=== PATIENT | female | born 1960 | race Caucasian/White ===

== ENCOUNTER 2017-07-03 11:55 | Observation (INO) | payer OTHER ==
[2017-07-03] VITALS (11 sets, daily range): BP systolic 104–182; BP diastolic 57–96; PULSE 74–103; RESP 16–21; TEMP 97.3–98.7; O2SAT 97–100
[~2017-07-03] VITALS: Ht 172.7 cm; Wt 81.5 kg
[~2017-07-03 11:55] MED LIST: FLUT1SPR5 EACH NARE; TRAM50TA PO; VENTAER INH
[2017-07-03] MEDS ORDERED: IOHEXOL 350 MG/ML 10 ML VIAL (for RAD DIAG) IVCONTRAST ONE (11:56)
[2017-07-03] MEDS ORDERED: ATOR40TA16 PO (12:15)
[2017-07-03] MEDS ORDERED: MECL-62 PO (12:15)
[2017-07-03] MEDS ORDERED: AMLO5TAB2 PO (12:15)
[2017-07-03] MEDS ORDERED: DULO1CAP2 PO (12:15)
[2017-07-03] MEDS ORDERED: SODIUM CHLOR 0.9% 1000 ML INJ 1,000 ML IV ONE (12:30)
[2017-07-03] MEDS ORDERED: SODIUM CHLORIDE 0.9% FLUSH 10 ML FLUSH IVF PRN (12:30)
--- NOTE | 2017-07-03 12:34 | PD ---
HPI Chief Complaint: Respiratory Symptoms Time Seen by Provider: 12:13 Travel History International Travel<30 days: No Contact w/Intl Traveler<30days: No Traveled to known affect area: No History of Present Illness HPI 56-year-old female presents emergency department complaining of shortness of breath and "chest heaviness". States that she has had these symptoms for approximately 5 weeks. States that she was treated for the flu by her primary care physician with Tamiflu and subsequently followed up with an urgent care for chest x-ray diagnosis of bronchitis and sinusitis. Patient states that she was placed on steroid antibiotic and her last dose was approximately 3 days ago. Patient states that she started feeling better but continues to have shortness of breath. States she does have a productive cough. States that this chest heaviness increases with lying down decreases with sitting up. States she has had 2 sleep sitting up because of the chest heaviness for approximately 5 weeks. Patient denies fever, chills, chest pain, abdominal pain , leg swelling, leg pain. Patient denies recent history of travel, surgery, fracture, blood clots, cancer. States she does have a history of fibromyalgia, hypertension, hyperlipidemia. Denies history of cardiac, pulmonary, kidney disease processes. Patient states she does have a family history of heart attacks. PFSH Past Medical History High Cholesterol: Yes Diminished Hearing: No Fibromyalgia: Yes Hypertension: Yes Medical other: Yes (VERTIGO) Immunizations Current: No Tetanus Vaccination: < 5 Years Influenza Vaccination: Yes Menopausal: Yes : 2 Para: 2 Family History Family Hypercholesterolemia: Yes Social History Alcohol Use: No Tobacco Use: No (QUIT 1991) Substance Use: No Allergies-Medications (Allergen,Severity, Reaction): Coded Allergies: strawberry (Unverified Allergy, Unknown, 07/03/17) Reported Meds & Prescriptions Reported Meds & Active Scripts Active Reported Amlodipine (Amlodipine Besylate) 5 Mg Tab 5 Mg PO DAILY Duloxetine DR (Duloxetine HCl) 30 Mg Capdr 30 Mg PO TID Atorvastatin (Atorvastatin Calcium) 40 Mg Tab 40 Mg PO HS Meclizine (Meclizine HCl) 25 Mg Tab 25 Mg PO DIRECTED PRN Flonase Nasal [place] (Fluticasone Nasal [place]) 50 Mcg/Act [place] 50 Mcg EACH NARE BID Ventolin Hfa 18 GM Inh (Albuterol Sulfate) 90 Mcg/Act Aer 2 Puff INH Q4-6H PRN Tramadol (Tramadol HCl) 50 Mg Tab 50 Mg PO Q12HR PRN Review of Systems Except as stated in HPI: all other systems reviewed are Neg Physical Exam Narrative GENERAL: WD, WN in mild distress SKIN: Focused skin assessment warm/dry. HEAD: Atraumatic. Normocephalic. EYES: Pupils equal and round. No scleral icterus. No injection or drainage. ENT: No nasal bleeding or discharge. Mucous membranes pink and moist. NECK: Trachea midline. No JVD. No lymphadenopathy CARDIOVASCULAR: Regular rate and rhythm. No murmur appreciated. RESPIRATORY: No accessory muscle use. Clear to auscultation. Breath sounds equal bilaterally. No wheezes, rales, rhonchi GASTROINTESTINAL: Abdomen soft, non-tender, nondistended. Hepatic and splenic margins not palpable. MUSCULOSKELETAL: No obvious deformities. No clubbing. No cyanosis. No edema. Homans sign negative bilaterally NEUROLOGICAL: Awake and alert. No obvious cranial nerve deficits. Motor grossly within normal limits. Normal speech. PSYCHIATRIC: Appropriate mood and affect; insight and judgment normal. Data Data Last Documented VS Vital Signs Date Time Temp Pulse Resp B/P (MAP) Pulse Ox O2 Delivery O2 Flow Rate FiO2 07/03/17 14:45 100 Nasal Cannula 2.00 07/03/17 14:02 80 20 134/61 (85) 07/03/17 11:58 97.9 Orders Orders Complete Blood Count With Diff (07/03/17 12:23) Comprehensive Metabolic Panel (07/03/17 12:23) B-Type Natriuretic Peptide (07/03/17 12:23) D-Dimer (07/03/17 12:23) Act Partial Throm Time (Ptt) (07/03/17 12:23) Prothrombin Time / Inr (Pt) (07/03/17 12:23) Magnesium (Mg) (07/03/17 12:23) Troponin I (07/03/17 12:23) Urinalysis - C+S If Indicated (07/03/17 12:23) Electrocardiogram (07/03/17 12:23) Ecg Monitoring (07/03/17 12:23) Oximetry (07/03/17 12:23) Chest, Single Ap (07/03/17 12:23) Sodium Chloride 0.9% Flush (Ns Flush) (07/03/17 12:30) Albuterol-Ipratropium Neb (Duoneb Neb) (07/03/17 12:30) Sodium Chlor 0.9% 1000 Ml Inj (Ns 1000 M (07/03/17 12:30) Clonidine (Catapres) (07/03/17 14:00) Ct Pulmonary Angiogram (07/03/17 ) Oxygen Administration (07/03/17 14:22) Iohexol 350 Inj (Omnipaque 350 Inj) (07/03/17 11:56) Activity Bed Rest With Brp (07/03/17 15:38) Vital Signs (Adult) Q4H (07/03/17 15:38) Cardiac Rhythm .As Directed (07/03/17 15:38) Notify Dr: Other .PRN (07/03/17 15:38) Notify DrRamos Parameters (07/03/17 15:38) Resp Oxygen Nasal Cannula (07/03/17 ) Diet Heart Healthy (07/03/17 Dinner) Ckmb (Isoenzyme) Profile (07/03/17 15:38) Ckmb (Isoenzyme) Profile (07/03/17 18:38) Troponin I (07/03/17 15:38) Troponin I (07/03/17 18:38) Electrocardiogram (07/03/17 15:38) Electrocardiogram (07/03/17 18:38) ^ Obtain (07/03/17 15:38) Acetaminophen (Tylenol) (07/03/17 15:45) Aspirin Chew (Aspirin Chew) (07/03/17 15:45) Web Application Developer / Telemetry [email or web address] (07/03/17 15:38) Admit Order (Ed Use Only) (07/03/17 15:38) Labs Laboratory Tests Test 07/03/17 12:30 07/03/17 13:20 White Blood Count 6.1 TH/MM3 Red Blood Count 5.03 MIL/MM3 Hemoglobin 14.7 GM/DL Hematocrit 43.0 % Mean Corpuscular Volume 85.5 FL Mean Corpuscular Hemoglobin 29.3 PG Mean Corpuscular Hemoglobin Concent 34.2 % Red Cell Distribution Width 14.1 % Platelet Count 290 TH/MM3 Mean Platelet Volume 9.1 FL Neutrophils (%) (Auto) 48.4 % Lymphocytes (%) (Auto) 41.0 % Monocytes (%) (Auto) 6.3 % Eosinophils (%) (Auto) 3.3 % Basophils (%) (Auto) 1.0 % Neutrophils # (Auto) 3.0 TH/MM3 Lymphocytes # (Auto) 2.5 TH/MM3 Monocytes # (Auto) 0.4 TH/MM3 Eosinophils # (Auto) 0.2 TH/MM3 Basophils # (Auto) 0.1 TH/MM3 CBC Comment DIFF FINAL Differential Comment Prothrombin Time 9.8 SEC Prothromb Time International Ratio 1.0 RATIO Activated Partial Thromboplast Time 25.4 SEC D-Dimer Quantitative (PE/DVT) 0.42 MG/L FEU Blood Urea Nitrogen 13 MG/DL Creatinine 0.94 MG/DL Random Glucose 118 MG/DL Total Protein 7.4 GM/DL Albumin 3.6 GM/DL Calcium Level 9.1 MG/DL Magnesium Level 2.4 MG/DL Alkaline Phosphatase 94 U/L Aspartate Amino Transf (AST/SGOT) 37 U/L Alanine Aminotransferase (ALT/SGPT) 33 U/L Total Bilirubin 0.4 MG/DL Sodium Level 139 MEQ/L Potassium Level 4.3 MEQ/L Chloride Level 107 MEQ/L Carbon Dioxide Level 24.0 MEQ/L Anion Gap 8 MEQ/L Estimat Glomerular Filtration Rate 61 ML/MIN Troponin I LESS THAN 0.02 NG/ML B-Type Natriuretic Peptide 2 PG/ML Urine Color YELLOW Urine Turbidity HAZY Urine pH 5.5 Urine Specific [place] 1.022 Urine Protein TRACE mg/dL Urine Glucose (UA) NEG mg/dL Urine Ketones NEG mg/dL Urine Occult Blood NEG Urine Nitrite NEG Urine Bilirubin NEG Urine Urobilinogen 2.0 MG/DL Urine Leukocyte Esterase SMALL Urine RBC 1 /hpf Urine WBC 3 /hpf Urine Squamous Epithelial Cells 5 /hpf Urine Renal Epithelial Cells <1 /hpf Urine Mucus FEW /lpf Microscopic Urinalysis Comment CULT NOT INDICATED MDM Medical Decision Making Medical Screen Exam Complete: Yes Emergency Medical Condition: Yes Differential Diagnosis Pneumonia, bronchitis, URI, NSTEMI Narrative Course 56-year-old female presents emergency department complaining of shortness of breath and "chest heaviness". States that she has had these symptoms for approximately 5 weeks. States that she was treated for the flu by her primary care physician with Tamiflu and subsequently followed up with an urgent care for chest x-ray diagnosis of bronchitis and sinusitis. Patient states that she was placed on steroid antibiotic and her last dose was approximately 3 days ago. Patient states that she started feeling better but continues to have shortness of breath. States she does have a productive cough. States that this chest heaviness increases with lying down decreases with sitting up. States she has had 2 sleep sitting up because of the chest heaviness for approximately 5 weeks. Patient denies fever, chills, chest pain, abdominal pain , leg swelling, leg pain. Patient denies recent history of travel, surgery, fracture, blood clots, cancer. States she does have a history of fibromyalgia, hypertension, hyperlipidemia. Denies history of cardiac, pulmonary, kidney disease processes. Patient states she does have a family history of heart attacks. Pt stopped smoking in 1991. Vital signs demonstrate elevated BP. Clonidine 0.1mg administered with good response. Duonebs administered without significant relief. Review the EMR shows stress test in March 2016 last stress test in March 2016 which included a normal treadmill exercise and no evidence of ischemia. There is mention of poor exercise tolerance. Laboratory Tests Test 07/03/17 12:30 07/03/17 13:20 White Blood Count 6.1 TH/MM3 Red Blood Count 5.03 MIL/MM3 Hemoglobin 14.7 GM/DL Hematocrit 43.0 % Mean Corpuscular Volume 85.5 FL Mean Corpuscular Hemoglobin 29.3 PG Mean Corpuscular Hemoglobin Concent 34.2 % Red Cell Distribution Width 14.1 % Platelet Count 290 TH/MM3 Mean Platelet Volume 9.1 FL Neutrophils (%) (Auto) 48.4 % Lymphocytes (%) (Auto) 41.0 % Monocytes (%) (Auto) 6.3 % Eosinophils (%) (Auto) 3.3 % Basophils (%) (Auto) 1.0 % Neutrophils # (Auto) 3.0 TH/MM3 Lymphocytes # (Auto) 2.5 TH/MM3 Monocytes # (Auto) 0.4 TH/MM3 Eosinophils # (Auto) 0.2 TH/MM3 Basophils # (Auto) 0.1 TH/MM3 CBC Comment DIFF FINAL Differential Comment Prothrombin Time 9.8 SEC Prothromb Time International Ratio 1.0 RATIO Activated Partial Thromboplast Time 25.4 SEC D-Dimer Quantitative (PE/DVT) 0.42 MG/L FEU Blood Urea Nitrogen 13 MG/DL Creatinine 0.94 MG/DL Random Glucose 118 MG/DL Total Protein 7.4 GM/DL Albumin 3.6 GM/DL Calcium Level 9.1 MG/DL Magnesium Level 2.4 MG/DL Alkaline Phosphatase 94 U/L Aspartate Amino Transf (AST/SGOT) 37 U/L Alanine Aminotransferase (ALT/SGPT) 33 U/L Total Bilirubin 0.4 MG/DL Sodium Level 139 MEQ/L Potassium Level 4.3 MEQ/L Chloride Level 107 MEQ/L Carbon Dioxide Level 24.0 MEQ/L Anion Gap 8 MEQ/L Estimat Glomerular Filtration Rate 61 ML/MIN Troponin I LESS THAN 0.02 NG/ML B-Type Natriuretic Peptide 2 PG/ML Urine Color YELLOW Urine Turbidity HAZY Urine pH 5.5 Urine Specific [place] 1.022 Urine Protein TRACE mg/dL Urine Glucose (UA) NEG mg/dL Urine Ketones NEG mg/dL Urine Occult Blood NEG Urine Nitrite NEG Urine Bilirubin NEG Urine Urobilinogen 2.0 MG/DL Urine Leukocyte Esterase SMALL Urine RBC 1 /hpf Urine WBC 3 /hpf Urine Squamous Epithelial Cells 5 /hpf Urine Renal Epithelial Cells <1 /hpf Urine Mucus FEW /lpf Microscopic Urinalysis Comment CULT NOT INDICATED I spoke with my attending, Dr. Goncalves who recommended a CT pulmonary angiogram as she continues to be SOB. Last Impressions Chest X-Ray 07/03/17 1223 Signed Impressions: Service Date/Time: Monday, July 03, 2017 13:05 - CONCLUSION: The lungs are clear. Brandt Powell MD CT Angiography 07/03/17 0000 Signed Impressions: Service Date/Time: Monday, July 03, 2017 15:11 - CONCLUSION: Normal examination. Darryl Milton MD Based on the patient's history and physical, patient was placed in the chest pain center. There is a concern for an ACS event. ASA, O2 administered. Patient states she does feel better after the application of oxygen. She continues to describe her chest "pain" as heaviness and worse with exertion. Pt and agreed to the admission/observation period. Diagnosis Primary Impression: Shortness of breath Additional Impression: Atypical chest pain Admitting Information Admitting Physician Requests: Observation Condition: Stable Coretta Cabrera Jul 03, 2017 12:34
[2017-07-03] MEDS: RESP: ALBUTEROL 2.5 MG/IPRATROPIUM 0.5 MG NEB (SCH) INH (12:40)
[2017-07-03 12:54] LABS: BASOPHIL # 0.1 TH/MM3 (0-0.2); EOSINOPHIL # 0.2 TH/MM3 (0-0.4); EOSINOPHIL % 3.3 % (0.0-4.0); HEMOGLOBIN 14.7 GM/DL (11.6-15.3); LYMPHOCYTE # 2.5 TH/MM3 (1.0-4.8); MEAN CELL VOLUME 85.5 FL (80.0-100.0); MEAN CORPUSCULAR HEMOGLOBIN 29.3 PG (27.0-34.0); MEAN CORPUSCULAR HGB CONC 34.2 % (32.0-36.0); MEAN PLATELET VOLUME 9.1 FL (7.0-11.0); MONO % 6.3 % (0.0-8.0); MONOCYTE # 0.4 TH/MM3 (0-0.9); NEUT % 48.4 % (16.0-70.0); PLATELET COUNT 290 TH/MM3 (150-450); RED BLOOD COUNT 5.03 MIL/MM3 (4.00-5.30); RED CELL DISTRIBUTION WIDTH 14.1 % (11.6-17.2); WHITE BLOOD COUNT 6.1 TH/MM3 (4.0-11.0)
[2017-07-03 13:00] LABS: PROTHROMBIN TIME - PATIENT 9.8 SEC (9.8-11.6)
[2017-07-03 13:01] LABS: D-DIMER 0.42 MG/L FEU (0.00-0.50)
[2017-07-03 13:17] LABS: ALT (GPT) 33 U/L (10-53)
[2017-07-03 13:21] LABS: ALKALINE PHOSPHATASE 94 U/L (45-117); TOTAL BILIRUBIN ADULT 0.4 MG/DL (0.2-1.0); TOTAL PROTEIN 7.4 GM/DL (6.4-8.2); TROPONIN I LESS THAN 0.02 NG/ML (0.02-0.05)
--- NOTE | 2017-07-03 13:21 | RADRPT ---
EXAM DATE/TIME: 07/03/2017 13:05 [facility] COMPARISON: CHEST SINGLE AP, March 27, 2016, 13:39. INDICATIONS : Short of Breath MEDICAL HISTORY : None. SURGICAL HISTORY : Fusion, lumbar. ENCOUNTER: Initial ACUITY: 1 day PAIN SCORE: 0/10 LOCATION: chest FINDINGS: A single view of the chest demonstrates the lungs to be symmetrically aerated without evidence of mas s, infiltrate or effusion. The cardiomediastinal contours are unremarkable. Osseous structures are intact. CONCLUSION: The lungs are clear. Brandt Powell MD on July 03, 2017 at 13:19 Board Certified Radiologist. This report was verified electronically.
[2017-07-03 13:40] LABS: ALBUMIN 3.6 GM/DL (3.4-5.0); AST (GOT) 37 U/L (15-37); BLOOD UREA NITROGEN 13 MG/DL (7-18); CALCIUM 9.1 MG/DL (8.5-10.1); CHLORIDE 107 MEQ/L (98-107); CREATININE 0.94 MG/DL (0.50-1.00); GLOMERULAR FILTRATION RATE 61 ML/MIN (>89); GLUCOSE,RANDOM 118 MG/DL (74-106); MAGNESIUM 2.4 MG/DL (1.5-2.5); SODIUM (NA) 139 MEQ/L (136-145)
[2017-07-03 14:00] LABS: BILIRUBIN, URINE NEG (NEG); BLOOD, URINE NEG (NEG); GLUCOSE,URINE NEG (NEG); KETONE, URINE NEG (NEG); MUCUS URINE FEW /lpf (OCC); NITRITE,URINE NEG (NEG); PH, URINE 5.5 (5.0-8.5); RENAL EPITHELIAL CELLS <1 /hpf; SQUAMOUS EPITHELIAL CELL URINE 5 /hpf (0-5); URINE COLOR YELLOW (YELLW/STRAW); URINE LEUKOCYTE ESTERASE SMALL (NEG)
[2017-07-03] MEDS ORDERED: cloNIDine HCL 0.1 MG TAB PO ONE (14:00)
--- NOTE | 2017-07-03 15:31 | RADRPT ---
EXAM DATE/TIME: 07/03/2017 15:11 [facility] COMPARISON: CHEST SINGLE AP, July 03, 2017, 13:05. INDICATIONS : Shortness of breath, heaviness in chest. IV CONTRAST: 80 cc Omnipaque 350 (iohexol) IV RADIATION DOSE: 10.85 CTDIvol (mGy) MEDICAL HISTORY : Hypertension. Fibromyalgia. SURGICAL HISTORY : None. ENCOUNTER: Initial ACUITY: 1 month PAIN SCALE: 0/10 LOCATION: Bilateral chest TECHNIQUE: Volumetric scanning of the chest was performed using a pulmonary embolism protocol MIP images were re constructed. Using automated exposure control and adjustment of the mA and/or kV according to patien t size, radiation dose was kept as low as reasonably achievable to obtain optimal diagnostic quality images. DICOM format image data is available electronically for review and comparison. Follow-up recommendations for detected pulmonary nodules are based at a minimum on nodule size and pa tient risk factors according to Fleischner Society Guidelines. FINDINGS: PULMONARY ARTERIES: No filling defects are seen in the pulmonary arteries through the segmental level. LUNGS: There is no consolidation or pneumothorax . No concerning pulmonary nodule is visualized. PLEURAE: There is no pleural thickening or pleural effusion. MEDIASTINUM: There is good visualization of the great vessels of the middle mediastinum. No evidence of mediastin al or hilar adenopathy/mass. MUSCULOSKELETAL: Within normal limits for patient age. MISCELLANEOUS: The visualized upper abdominal organs demonstrate no acute abnormality. CONCLUSION: Normal examination. Darryl Milton MD on July 03, 2017 at 15:29 Board Certified Radiologist. This report was verified electronically.
[2017-07-03] MEDS ORDERED: ACETAMINOPHEN 500 MG CPLT PO PRN (15:45)
[2017-07-03] MEDS ORDERED: ASPIRIN 81 MG CHEW TAB PO ONE (15:45)
--- NOTE | 2017-07-03 16:26 | PD ---
Data Data Last Documented VS Vital Signs Date Time Temp Pulse Resp B/P (MAP) Pulse Ox O2 Delivery O2 Flow Rate FiO2 07/03/17 14:45 100 Nasal Cannula 2.00 07/03/17 14:02 80 20 134/61 (85) 07/03/17 11:58 97.9 Orders Orders Complete Blood Count With Diff (07/03/17 12:23) Comprehensive Metabolic Panel (07/03/17 12:23) B-Type Natriuretic Peptide (07/03/17 12:23) D-Dimer (07/03/17 12:23) Act Partial Throm Time (Ptt) (07/03/17 12:23) Prothrombin Time / Inr (Pt) (07/03/17 12:23) Magnesium (Mg) (07/03/17 12:23) Troponin I (07/03/17 12:) Urinalysis - C+S If Indicated (07/03/17 12:23) Electrocardiogram (07/03/17 12:23) Ecg Monitoring (07/03/17 12:23) Oximetry (07/03/17 12:23) Chest, Single Ap (07/03/17 12:23) Sodium Chloride 0.9% Flush (Ns Flush) (07/03/17 12:30) Albuterol-Ipratropium Neb (Duoneb Neb) (07/03/17 12:30) Sodium Chlor 0.9% 1000 Ml Inj (Ns 1000 M (07/03/17 12:30) Clonidine (Catapres) (07/03/17 14:00) Ct Pulmonary Angiogram (07/03/17 ) Oxygen Administration (07/03/17 14:22) Iohexol 350 Inj (Omnipaque 350 Inj) (07/03/17 11:56) Activity Bed Rest With Brp (07/03/17 15:38) Vital Signs (Adult) Q4H (07/03/17 15:38) Cardiac Rhythm .As Directed (07/03/17 15:38) Notify Dr: Other .PRN (07/03/17 15:38) Notify Parameters (07/03/17 15:38) Resp Oxygen Nasal Cannula (07/03/17 ) Diet Heart Healthy (07/03/17 Dinner) Ckmb (Isoenzyme) Profile (07/03/17 15:38) Ckmb (Isoenzyme) Profile (07/03/17 18:38) Troponin I (07/03/17 15:38) Troponin I (07/03/17 18:38) Electrocardiogram (07/03/17 15:38) Electrocardiogram (07/03/17 18:38) ^ Obtain (07/03/17 15:38) Acetaminophen (Tylenol) (07/03/17 15:45) Aspirin Chew (Aspirin Chew) (07/03/17 15:45) Global Position System Technician / Telemetry [email or web address] (07/03/17 15:38) Admit Order (Ed Use Only) (07/03/17 15:38) Labs Laboratory Tests Test 07/03/17 12:30 07/03/17 13:20 White Blood Count 6.1 TH/MM3 Red Blood Count 5.03 MIL/MM3 Hemoglobin 14.7 GM/DL Hematocrit 43.0 % Mean Corpuscular Volume 85.5 FL Mean Corpuscular Hemoglobin 29.3 PG Mean Corpuscular Hemoglobin Concent 34.2 % Red Cell Distribution Width 14.1 % Platelet Count 290 TH/MM3 Mean Platelet Volume 9.1 FL Neutrophils (%) (Auto) 48.4 % Lymphocytes (%) (Auto) 41.0 % Monocytes (%) (Auto) 6.3 % Eosinophils (%) (Auto) 3.3 % Basophils (%) (Auto) 1.0 % Neutrophils # (Auto) 3.0 TH/MM3 Lymphocytes # (Auto) 2.5 TH/MM3 Monocytes # (Auto) 0.4 TH/MM3 Eosinophils # (Auto) 0.2 TH/MM3 Basophils # (Auto) 0.1 TH/MM3 CBC Comment DIFF FINAL Differential Comment Prothrombin Time 9.8 SEC Prothromb Time International Ratio 1.0 RATIO Activated Partial Thromboplast Time 25.4 SEC D-Dimer Quantitative (PE/DVT) 0.42 MG/L FEU Blood Urea Nitrogen 13 MG/DL Creatinine 0.94 MG/DL Random Glucose 118 MG/DL Total Protein 7.4 GM/DL Albumin 3.6 GM/DL Calcium Level 9.1 MG/DL Magnesium Level 2.4 MG/DL Alkaline Phosphatase 94 U/L Aspartate Amino Transf (AST/SGOT) 37 U/L Alanine Aminotransferase (ALT/SGPT) 33 U/L Total Bilirubin 0.4 MG/DL Sodium Level 139 MEQ/L Potassium Level 4.3 MEQ/L Chloride Level 107 MEQ/L Carbon Dioxide Level 24.0 MEQ/L Anion Gap 8 MEQ/L Estimat Glomerular Filtration Rate 61 ML/MIN Troponin I LESS THAN 0.02 NG/ML B-Type Natriuretic Peptide 2 PG/ML Urine Color YELLOW Urine Turbidity HAZY Urine pH 5.5 Urine Specific [place] 1.022 Urine Protein TRACE mg/dL Urine Glucose (UA) NEG mg/dL Urine Ketones NEG mg/dL Urine Occult Blood NEG Urine Nitrite NEG Urine Bilirubin NEG Urine Urobilinogen 2.0 MG/DL Urine Leukocyte Esterase SMALL Urine RBC 1 /hpf Urine WBC 3 /hpf Urine Squamous Epithelial Cells 5 /hpf Urine Renal Epithelial Cells <1 /hpf Urine Mucus FEW /lpf Microscopic Urinalysis Comment CULT NOT INDICATED MDM Medical Record Reviewed: Yes Supervised Visit with LONNIE: Yes Narrative Course I, Dr. Goncalves, have reviewed the advance practice practitioner's documentation and am in agreement, met with the patient face to face, made the diagnosis, and the medical decision making was done by me. *My assessment and Findings: EKG shows sinus rhythm without ischemic injury pattern The patient will follow up with the chest pain center protocol given her chest heaviness and dyspnea on exertion failure to complete a stress test one year prior. Diagnosis Primary Impression: Shortness of breath Additional Impression: Atypical chest pain Condition: Stable Curtis Goncalves MD Jul 03, 2017 16:25
[2017-07-03] MEDS ORDERED: RESP: ALBUTEROL 2.5 MG/IPRATROPIUM 0.5 MG NEB (PRN) INH (16:30)
[2017-07-03] MEDS ORDERED: cloNIDine HCL 0.1 MG TAB PO PRN (16:30)
--- NOTE | 2017-07-03 16:37 | HHI.HP ---
[facility] Primary Care Physician Tricia Bob M.D. Chief Complaint Chest pain History of Present Illness This is a 56-year-old female history of hypertension, hyperlipidemia, fibromyalgia, and asthma that presents to ED with a complaint of shortness of breath and heaviness in her chest. States the heaviness was in the center of her chest and occurred when she would cough and would last for about 5 minutes. Also the discomfort would occur when she would walk around her house and can last for a couple hours. Patient states that she has been battling a flu illness or upper respiratory infection for the last 5 weeks. She states that she was placed on Tamiflu 5 weeks ago by her primary care physician presuming she had influenza. Patient states she had had a nonproductive cough, fever as high as 102.7, weakness, myalgias. Coughing has persisted however the other symptoms have for the most part resolved. She went to an urgent care center a little more than a week ago and was placed on doxycycline and a Medrol Dosepak. Patient states she was feeling better while on the steroids. Patient states that she has had a stress test in the past. Upon reviewing records she had a nonischemic Ha[place] protocol ETT March 2016 at this facility however she was able to walk only 1 minute and 25 seconds. Currently feeling fine. She thinks she may have been wheezing a little bit when she arrived but that has resolved after getting a DuoNeb in the ED. Review of Systems General: She had recently had fevers chills and myalgias. However the symptoms have resolved a few weeks ago. Patient denies recent travel HEENT: Patient denies headache, sore throat, difficulty swallowing. Cardiovascular: Has the chest discomfort as mentioned above. Denies sensation of heart beating rapidly or irregularly. No syncope. Denies diaphoresis. Respiratory: There is been shortness of breath. She has had a nonproductive cough. Occasional wheezing. No hemoptysis. Discomfort can be brought on by coughing. Denies inspirational chest discomfort. GI: Patient denies nausea, vomiting, diarrhea, abdominal pain, bloody stools. Musculoskeletal: Patient denies joint pain or edema. Denies calf pain or edema. Neurovascular: Patient denies numbness, tingling, weakness in extremities. Denies headache. Endocrine: Denies polyuria and polydipsia. Hematologic: Denies easy bruising. Skin: Denies rash or itching. Past Family Social History Allergies: Coded Allergies: strawberry (Unverified Allergy, Unknown, 07/03/17) Past Medical History Hypertension, hyperlipidemia, fibromyalgia, asthma, past tobacco abuse but quit in 1991. Denies diabetes and known CAD. Past Surgical History Noncontributory. Reported Medications Reported Meds & Active Scripts Active Reported Amlodipine (Amlodipine Besylate) 5 Mg Tab 5 Mg PO DAILY Duloxetine DR (Duloxetine HCl) 30 Mg Capdr 30 Mg PO TID Atorvastatin (Atorvastatin Calcium) 40 Mg Tab 40 Mg PO HS Meclizine (Meclizine HCl) 25 Mg Tab 25 Mg PO DIRECTED PRN Flonase Nasal [place] (Fluticasone Nasal [place]) 50 Mcg/Act [place] 50 Mcg EACH NARE BID [place] Hfa 18 GM Inh (Albuterol Sulfate) 90 Mcg/Act Aer 2 Puff INH Q4-6H PRN Tramadol (Tramadol HCl) 50 Mg Tab 50 Mg PO Q12HR PRN Active Ordered Medications Current Medications Medications (Trade) Dose Ordered Sig/Dong Route Start Time Stop Time Status Last Admin (NS Flush) 2 ml UNSCH PRN IVF 07/03/17 12:30 (Tylenol) 500 mg Q4H PRN PO 07/03/17 15:45 Family History Her father at age 49 of a myocardial infarction. Her brother has coronary artery disease with onset in his 40s. Social History Patient quit smoking in 1991. Prior to that she smoked one half pack of cigarettes daily for about 15 years. Denies alcohol or illicit drugs. Physical Exam Vital Signs Vital Signs Date Time Temp Pulse Resp B/P (MAP) Pulse Ox O2 Delivery O2 Flow Rate FiO2 07/03/17 14:45 100 Nasal Cannula 2.00 07/03/17 14:02 80 20 134/61 (85) 100 Room Air 07/03/17 12:45 78 20 182/96 (124) 100 Room Air 07/03/17 12:18 93 21 182/96 (124) 100 Room Air 07/03/17 12:11 21 07/03/17 11:58 97.9 103 18 141/88 (105) 100 Physical Exam GENERAL: This is a well-nourished, well-developed patient, in no apparent distress. Patient speaks in clear complete sentences. Patient is pleasant. HEENT: Head is atraumatic and normocephalic. Neck is supple without lymphadenopathy and trachea is midline. No JVD or carotid bruits. CARDIOVASCULAR: Regular rate and rhythm without murmurs, gallops, or rubs. RESPIRATORY: Clear to auscultation. Breath sounds equal bilaterally. No wheezes , rales, or rhonchi. Chest wall is nontender. No use of accessory muscles. GASTROINTESTINAL: Abdomen is nontender, nondistended. Abdomen soft. No obvious pulsatile mass or bruit. No CVA tenderness. Strong femoral pulses bilaterally. Normal bowel sounds in all quadrants. MUSCULOSKELETAL: Patient is moving upper and lower extremities freely. No calf tenderness or edema, no Homans sign. Strong pulses in upper and lower extremities. NEUROLOGICAL: Patient is alert and oriented. Cranial nerves 2-12 are grossly intact. No focal deficits and speech is clear. SKIN: No rash and turgor is normal. Laboratory Laboratory Tests Test 07/03/17 12:30 07/03/17 13:20 White Blood Count 6.1 Red Blood Count 5.03 Hemoglobin 14.7 Hematocrit 43.0 Mean Corpuscular Volume 85.5 Mean Corpuscular Hemoglobin 29.3 Mean Corpuscular Hemoglobin Concent 34.2 Red Cell Distribution Width 14.1 Platelet Count 290 Mean Platelet Volume 9.1 Neutrophils (%) (Auto) 48.4 Lymphocytes (%) (Auto) 41.0 Monocytes (%) (Auto) 6.3 Eosinophils (%) (Auto) 3.3 Basophils (%) (Auto) 1.0 Neutrophils # (Auto) 3.0 Lymphocytes # (Auto) 2.5 Monocytes # (Auto) 0.4 Eosinophils # (Auto) 0.2 Basophils # (Auto) 0.1 CBC Comment DIFF FINAL Differential Comment Prothrombin Time 9.8 Prothromb Time International Ratio 1.0 Activated Partial Thromboplast Time 25.4 D-Dimer Quantitative (PE/DVT) 0.42 Blood Urea Nitrogen 13 Creatinine 0.94 Random Glucose 118 Total Protein 7.4 Albumin 3.6 Calcium Level 9.1 Magnesium Level 2.4 Alkaline Phosphatase 94 Aspartate Amino Transf (AST/SGOT) 37 Alanine Aminotransferase (ALT/SGPT) 33 Total Bilirubin 0.4 Sodium Level 139 Potassium Level 4.3 Chloride Level 107 Carbon Dioxide Level 24.0 Anion Gap 8 Estimat Glomerular Filtration Rate 61 Troponin I LESS THAN 0.02 B-Type Natriuretic Peptide 2 Urine Color YELLOW Urine Turbidity HAZY Urine pH 5.5 Urine Specific [place] 1.022 Urine Protein TRACE Urine Glucose (UA) NEG Urine Ketones NEG Urine Occult Blood NEG Urine Nitrite NEG Urine Bilirubin NEG Urine Urobilinogen 2.0 Urine Leukocyte Esterase SMALL Urine RBC 1 Urine WBC 3 Urine Squamous Epithelial Cells 5 Urine Renal Epithelial Cells <1 Urine Mucus FEW Microscopic Urinalysis Comment CULT NOT INDICATED Result Diagram: 07/03/17 1230 07/03/17 1230 Imaging Last 48 hours Impressions Chest X-Ray 07/03/17 1223 Signed Impressions: Service Date/Time: Monday, July 03, 2017 13:05 - CONCLUSION: The lungs are clear. Brandt Powell MD CT Angiography 07/03/17 0000 Signed Impressions: Service Date/Time: Monday, July 03, 2017 15:11 - CONCLUSION: Normal examination. Darrly Milton MD Course Initial EKG is sinus rhythm without significant ST segment depressions or elevations. Caprini VTE Risk Assessment Caprini VTE Risk Assessment: No/Low Risk (score <= 1) Caprini Risk Assessment Model Point Value = 1 Point Value = 2 Point Value = 3 Point Value = 5 Age 41-60 Minor surgery BMI > 25 kg/m2 Swollen legs Varicose veins or History of unexplained or recurrent spontaneous Oral contraceptives or hormone replacement Sepsis (< 1 month) Serious lung disease, including pneumonia (< 1 month) Abnormal pulmonary function Acute myocardial infarction Congestive heart failure (< 1 month) History of inflammatory bowel disease Medical patient at bed rest Age 61-74 Arthroscopic surgery Major open surgery (> 45 min) Laparoscopic surgery (> 45 min) Malignancy Confined to bed (> 72 hours) Immobilizing plaster cast Central venous access Age >= 75 History of VTE Family history of VTE Factor V Leiden Prothrombin [id number] Lupus anticoagulant Anticardiolipin antibodies Elevated serum homocysteine Heparin-induced thrombocytopenia Other congenital or acquired thrombophilia Stroke (< 1 month) Elective arthroplasty Hip, pelvis, or leg fracture Acute spinal cord injury (< 1 month) Prophylaxis Regimen Total Risk Factor Score Risk Level Prophylaxis Regimen 0-1 Low Early ambulation 2 Moderate Order ONE of the following: *Sequential Compression Device (SCD) *Heparin 5000 units SQ BID 3-4 Higher Order ONE of the following medications: *Heparin 5000 units SQ TID *Enoxaparin/Lovenox 40 mg SQ daily (WT < 150 kg, CrCl > 30 mL/min) *Enoxaparin/Lovenox 30 mg SQ daily (WT < 150 kg, CrCl > 10-29 mL/min) *Enoxaparin/Lovenox 30 mg SQ BID (WT < 150 kg, CrCl > 30 mL/min) AND/OR *Sequential Compression Device (SCD) 5 or more Highest Order ONE of the following medications: *Heparin 5000 units SQ TID (Preferred with Epidurals) *Enoxaparin/Lovenox 40 mg SQ daily (WT < 150 kg, CrCl > 30 mL/min) *Enoxaparin/Lovenox 30 mg SQ daily (WT < 150 kg, CrCl > 10-29 mL/min) *Enoxaparin/Lovenox 30 mg SQ BID (WT < 150 kg, CrCl > 30 mL/min) AND *Sequential Compression Device (SCD) Assessment and Plan Assessment and Plan * Chest pain: Patient will continue to have serial cardiac enzymes and EKGs for ruling out purposes. Symptoms may be related to respiratory issues. Patient will be seen by Dr. Jose Echeverria of cardiology in the chest pain center in the morning. She ruled out she likely will have a stress test which would likely be a Lexiscan as she was only able to walk 1 minute and 25 seconds about a year and a half ago and she is feeling more fatigued since having her URI/ viral symptoms. Patient will likely be discharged home if her stress test were to be nonischemic. There will be as needed duo nebs while in chest pain center. Patient to follow-up with her PCP after discharge, return to ED for interval issues. * Hypertension: Continue current medications. * Hyperlipidemia: Continue current medications. * Fibromyalgia: Continue current medications. Patient is stable at this time. She is agreeable to this plan. Gutierrez Carmona Jul 03, 2017 16:37
[2017-07-03] MEDS ORDERED: ACETAMINOPHEN/HYDROcodone 325 MG/7.5 MG TAB PO PRN (16:45)
[2017-07-03] MEDS: PANTOPRAZOLE SOD 40 MG DELAYED RELEASE TAB PO SCH (17:20)
[2017-07-03] MEDS: DULoxetine HCl DR 30 MG CAP PO SCH (18:27)
[2017-07-03 18:32] LABS: TROPONIN I LESS THAN 0.02 NG/ML (0.02-0.05)
[2017-07-03] MEDS ORDERED: ATORVASTATIN 40 MG TAB PO SCH (21:00)
[2017-07-03 21:11] LABS: TROPONIN I LESS THAN 0.02 NG/ML (0.02-0.05)
[2017-07-04] VITALS: PULSE 72
[2017-07-04 04:00] VITALS: PULSE 72
[2017-07-04 04:13] VITALS: BP 120/65; PULSE 75; RESP 16; TEMP 98.1; O2SAT 99
[2017-07-04 06:34] VITALS: O2SAT 99
[2017-07-04 07:36] VITALS: PULSE 73
[2017-07-04 07:47] VITALS: BP 113/95; PULSE 82; RESP 18; TEMP 97.8; O2SAT 95
--- NOTE | 2017-07-04 08:21 | HHI.DS ---
Discharge Summary Admission Date Jul 03, 2017 at 15:41 Discharge Date: Jul 04, 2017 Admitting Diagnosis Chest pain, SOB r/o ACS (1) Atypical chest pain Diagnosis: Principal ICD Codes: R07.89 - Other chest pain Status: Chronic (2) Viral syndrome Diagnosis: Principal ICD Codes: B34.9 - Viral infection, unspecified Status: Chronic Procedures Last 48 hours Impressions Chest X-Ray 07/03/17 1223 Signed Impressions: Service Date/Time: Monday, July 03, 2017 13:05 - CONCLUSION: The lungs are clear. Brandt Powell MD CT Angiography 07/03/17 0000 Signed Impressions: Service Date/Time: Monday, July 03, 2017 15:11 - CONCLUSION: Normal examination. Darryl Milton MD CBC/BMP: 07/03/17 1230 07/03/17 1230 Significant Findings Laboratory Tests Test 07/03/17 12:30 07/03/17 13:20 07/03/17 17:30 07/03/17 20:40 Random Glucose 118 MG/DL (74-106) Estimat Glomerular Filtration Rate 61 ML/MIN (>89) Troponin I LESS THAN 0.02 NG/ML LESS THAN 0.02 NG/ML LESS THAN 0.02 NG/ML Urine Turbidity HAZY (CLEAR) Urine Leukocyte Esterase SMALL (NEG) Urine Mucus FEW /lpf (OCC) Pt Condition on Discharge: Good Discharge Disposition: Discharge Home Discharge Instructions DIET: Follow Instructions for: Heart Healthy Diet Speech Therapy-Diet Recommenda: Regular Activities you can perform: Regular-No Restrictions Additional Information Continue supportive measures, staying well hydrated, and getting plenty of rest. Reassurance provided chest xray and CT chest unremarkable without signs of pneumonia. Follow up with PCP as previously instructed. No further cardiac testing required at this time. Patient and both relieved and agreeable to plan for discharge this am. Nanci Russell Jul 04, 2017 08:21
[2017-07-04] MEDS: DULoxetine HCl DR 30 MG CAP PO SCH (09:00)
[2017-07-04] MEDS: PANTOPRAZOLE SOD 40 MG DELAYED RELEASE TAB PO SCH (09:00)
[2017-07-04] MEDS ORDERED: amLODIPine BESYLATE 5 MG TAB PO SCH (09:00)
--- NOTE | 2017-07-04 23:00 | EKG ---
Date Performed: 07/03/2017 Time Performed: 20:32:19 PTAGE: 56 years EKG: Sinus rhythm NORMAL ECG PREVIOUS TRACING : 07/03/2017 17.31 DOCTOR: Rowena Paulino Interpretating Date/Time 07/04/2017 22:53:41
--- NOTE | 2017-07-04 23:05 | EKG ---
Date Performed: 07/03/2017 Time Performed: 17:31:46 PTAGE: 56 years EKG: Sinus rhythm NORMAL ECG PREVIOUS TRACING : 07/03/2017 12.55 DOCTOR: Rowena Paulino Interpretating Date/Time 07/04/2017 22:56:15
--- NOTE | 2017-07-04 23:10 | EKG ---
Date Performed: 07/03/2017 Time Performed: 12:55:20 PTAGE: 56 years EKG: Sinus rhythm NORMAL ECG PREVIOUS TRACING : 03/27/2016 12.31 DOCTOR: Rowena Paulino Interpretating Date/Time 07/04/2017 23:00:22
== END 2017-07-04 10:04 | disposition home or self-care (01) ==
LOC: NEPC 11:55 → NEDA 15:41 → NEPFCDU 17:51
DX: R07.89 Other chest pain (principal); B34.9 Viral infection, unspecified; I10 Essential (primary) hypertension; E78.5 Hyperlipidemia, unspecified; M79.7 Fibromyalgia; J45.909 Unspecified asthma, uncomplicated; F17.210 Nicotine dependence, cigarettes, uncomplicated; Z82.49 Family history of ischemic heart disease and other diseases of the circulatory system
CPT/HCPCS: 71045; 71275; 80053; 81001; 82550; 82552; 83735; 83880; 84484; 85025; 85379; 85610; 85730; 93005; 94640; 94664; 96360; 99285; G0378; J7030; Q9967